=== PATIENT | female | born 1945 | race Caucasian/White ===

== ENCOUNTER → 2017-08-27 | Outpatient (RCR) | payer MEDICARE, OTHER | LOC: PT 08-13 13:47 | PROVIDERS: ATTEND Specialist | DX: M17.0 Bilateral primary osteoarthritis of knee (principal); M25.561 Pain in right knee; M25.661 Stiffness of right knee, not elsewhere classified; M25.662 Stiffness of left knee, not elsewhere classified; R26.2 Difficulty in walking, not elsewhere classified; M62.81 Muscle weakness (generalized); E66.01 Morbid (severe) obesity due to excess calories | CPT/HCPCS: 97110 ×4; 97163; G8978; G8979 ==

== ENCOUNTER 2017-09-19 10:00 | Outpatient (RCR) | payer MEDICARE, OTHER | END 2017-09-27 | LOC: PT 10:00 | PROVIDERS: ATTEND Specialist | DX: M17.0 Bilateral primary osteoarthritis of knee (principal); M25.562 Pain in left knee; M25.561 Pain in right knee; M25.662 Stiffness of left knee, not elsewhere classified; M25.661 Stiffness of right knee, not elsewhere classified; R26.2 Difficulty in walking, not elsewhere classified; M62.81 Muscle weakness (generalized); E66.01 Morbid (severe) obesity due to excess calories | CPT/HCPCS: 97110 ×8; 97164; G8978; G8979 ==

== ENCOUNTER 2017-10-24 13:57 | Outpatient (RCR) | payer MEDICARE, OTHER | END 2017-10-27 | LOC: WCC 13:57 | PROVIDERS: ATTEND Family Medicine | DX: E11.65 Type 2 diabetes mellitus with hyperglycemia (principal); E11.628 Type 2 diabetes mellitus with other skin complications; E11.21 Type 2 diabetes mellitus with diabetic nephropathy; I87.332 Chronic venous hypertension (idiopathic) with ulcer and inflammation of left lower extremity; L97.822 Non-pressure chronic ulcer of other part of left lower leg with fat layer exposed; R60.0 Localized edema; K21.9 Gastro-esophageal reflux disease without esophagitis; J45.909 Unspecified asthma, uncomplicated; I87.2 Venous insufficiency (chronic) (peripheral); I89.0 Lymphedema, not elsewhere classified; I10 Essential (primary) hypertension; G89.29 Other chronic pain; G90.09 Other idiopathic peripheral autonomic neuropathy; E78.00 Pure hypercholesterolemia, unspecified ==

== ENCOUNTER → 2017-10-27 | Outpatient (RCR) | payer MEDICARE, OTHER | LOC: PT 10-03 11:15 | PROVIDERS: ATTEND Specialist | DX: M17.0 Bilateral primary osteoarthritis of knee (principal); E66.01 Morbid (severe) obesity due to excess calories; M25.562 Pain in left knee; M25.561 Pain in right knee; M25.662 Stiffness of left knee, not elsewhere classified; M25.661 Stiffness of right knee, not elsewhere classified; R26.2 Difficulty in walking, not elsewhere classified; M62.81 Muscle weakness (generalized) | CPT/HCPCS: 97110 ×5; G8978; G8979 ==

== ENCOUNTER 2017-11-14 11:00 | Outpatient (RCR) | payer MEDICARE, OTHER | END 2017-11-27 | LOC: PT 11:00 | PROVIDERS: ATTEND Specialist | DX: M17.0 Bilateral primary osteoarthritis of knee (principal); M25.562 Pain in left knee; M25.561 Pain in right knee; R26.2 Difficulty in walking, not elsewhere classified; M62.81 Muscle weakness (generalized); E66.01 Morbid (severe) obesity due to excess calories ==